=== PATIENT | male | born 1970 | race Caucasian/White ===

== ENCOUNTER 2022-09-19 21:30 | Emergency (ER) | payer OTHER, SELFPAY ==
[2022-09-19 21:33] VITALS: BP 136/75; PULSE 108; RESP 18; TEMP 38; O2SAT 98; BMI 21.7
[2022-09-19 21:48] VITALS: BP 136/75; PULSE 108; RESP 18; TEMP 38; O2SAT 98
--- NOTE | 2022-09-19 21:56 | MRI_ITS ---
STUDY: MRI THORACIC SPINE WITHOUT CONTRAST REASON FOR EXAM: Male, 52 years old. urinary retention, fever, leg weakness TECHNIQUE: MRI examination of the thoracic spine obtained with a standard protocol including multiplanar multiecho noncontrast imaging. Multiplanar multiecho pre and postcontrast imaging obtained. Contrast: 15 mL clariscan. COMPARISON: MRI examination lumbar spine of the same date FINDINGS: VERTEBRAL BODIES: 1. Normal kyphosis of the thoracic spine. There is no substantial scoliosis. 2. No areas of abnormal contrast enhancement. INTERVERTEBRAL DISC SPACES: 1. T1-2, T2-3, T3-4, T4-5, T5-6, T6-7, T7-8, T8-9, T9-10, T10-11, T11-12: Only minimal deformity of endplates in the mid to lower thoracic spine consistent with subtle Schmorl''s nodes. No evidence of marrow or disc edema. No infectious or inflammatory process is noted. 2. No evidence of disc herniation or canal stenosis. No evidence of cord or nerve root impingement. SPINAL CORD: 1. Normal visualized thoracic cord. Normal conus medullaris that terminates at the L1. 2. No areas of abnormal contrast enhancement. PARASPINOUS SOFT TISSUES: The soft tissue structures are unremarkable. MRI/Spine Thoracic W/WO Contrast IMPRESSION: 1. Only mild disc changes with subtle scattered Schmorl''s nodes in the mid to distal thoracic spine. 2. No evidence fracture destructive marrow replacement process, disc herniation canal or foraminal narrowing. 3. No evidence of cord or nerve root compression. No cord signal or contrast abnormality noted. Electronically Signed: Roger Barakat MD at 0:50 EDT ,
--- NOTE | 2022-09-19 21:56 | MRI_ITS ---
STUDY: MRI LUMBAR SPINE WITHOUT CONTRAST REASON FOR EXAM: Male, 52 years old. urinary retention, fever, leg weakness TECHNIQUE: MRI examination lumbar spine fusion protocol including multiplanar multiecho pre and postcontrast imaging. Contrast: 50 AML clariscan IV. COMPARISON: Correlation is made to MRI of the thoracic spine of the same date. FINDINGS: Vertebral bodies and alignment. 1. Vertebral body height and alignment are maintained. No evidence of marrow edema or occult fracture. 2. Paraspinous soft tissue planes have normal appearance. Normal appearance of the muscular fascial planes of the erector spinae. 3. Normal appearance of the sacrum and sacroiliac joints. Intervertebral disks levels. T12-L1: Normal endplates. Normal disc height, hydration and morphology. Normal bilateral facet joints. Normal central canal and bilateral lateral recesses. Normal bilateral intervertebral neural foramina. L1-2: Normal endplates. Normal disc height, hydration and morphology. Normal bilateral facet joints. Normal central canal and bilateral lateral recesses. Normal bilateral intervertebral neural foramina. L2-3: Minimal disc desiccation, minimal broad-based disc bulge without disc herniation canal or foraminal narrowing. L3-4: Normal endplates. Normal disc height, hydration and morphology. There is moderate facet hypertrophy. Normal central canal and bilateral lateral recesses. Normal bilateral intervertebral neural foramina. L4-5: No disc herniation canal stenosis, mild facet hypertrophic changes however no nerve root impingement. L5-S1: Disc desiccation, broad-based posterior disc bulge, no evidence however of canal or foraminal narrowing. No evidence of nerve root impingement. Spinal cord: Normal appearance of the spinal cord and conus. Conus is located at L1. Cauda equina has normal appearance. No evidence of cord compression or edema. No intramedullary signal abnormality noted. MRI/Spine Lumbar W/WO Contrast IMPRESSION: 1. [Mild disc desiccation multiple levels however no disc herniation canal or foraminal stenosis. 2. No evidence of cord or nerve root compression. Electronically Signed: Roger Barakat MD at 1:01 EDT ,
[2022-09-19 22:10] LABS: Absolute Neutrophil Count 19.6 X10^3/uL (2.0-7.7); Basophil# 0.05 X10^3/uL; Basophil% 0.2 % (0-1); Eosinophil# 0.01 X10^3/uL; Hematocrit 42.4 % (40-54); Hemoglobin 14.4 g/dL (13.0-16.5); Lymphocyte % 5.9 % (19-41); Mean Corpuscular Volume 91.4 fL (80-94); Mean Platelet Vol. 9.7 fl (6.2-12.0); Monocyte# 0.94 X10^3/uL; Monocyte% 4.3 % (0-10); NRBC Flagged by Analyzer 0 % (0-5); Neutrophil # 19.59 X10^3/uL (2.7-7.7); Neutrophil % 89.1 % (47-70); Platelet Count 312 K/mm3 (150-450); RBC Distribution Width SD 50.3 fl (35.1-43.9); Red Blood Count 4.64 M/mm3 (4.6-6.2)
[2022-09-19 22:11] LABS: Color, Urine Yellow (Yellow); Glucose, Dipstick Normal (Normal); Ketone-Dipstick 5 mg/dl (Negative); Leukocyte Esterase-Dipstick 25 /ul (Negative); Mucous, Urine 0 SEEN /hpf (<or=2+); Nitrite-Dipstick Negative (Negative); Occult Blood-Urine 250 /ul (Negative); Protein-Dipstick 15 mg/dl (Negative); Specific Gravity, Urine 1.015 (1.002-1.030); Squamous Epithelial Cells - UA 0 SEEN /hpf (0-5); Urine Bilirubin Dipstick Negative (Negative); Urine Clarity Sl. Cloudy (Clear); Urine Urobilinogen Normal (Normal); Urine pH 6.5 (5.0 - 8.0)
[2022-09-19 22:17] LABS: Bacteria 1+ /hpf (None Seen); Red Blood Cells-Urine 10-25 SEEN /hpf (0-5); White Blood Cells 0-5 SEEN /hpf (0-5)
[2022-09-19 22:33] LABS: AST(SGOT) 10 U/L (15-37); Alanine Aminotransfer ALT/SGPT 20 U/L (16-61); Albumin, Serum 3.5 g/dL (3.2-5.0); Alkaline Phosphatase 80 U/L (45-117); Anion Gap 7 (5-15); BUN 8 mg/dL (7-18); BUN/Creat Ratio 9.9 RATIO (10-20); Calcium,Total 9.4 mg/dL (8.5-10.1); Chloride 100 mmol/L (98-107); Creatinine, Serum 0.81 mg/dL (0.70-1.30); EST Glomerular Filtration Rate 107 mL/min (>60); Est Glom Filt Rate - Afr Amer 129 mL/min (>60); Estimated Creatinine Clearance 112.57 ml/min; Globulin 3.5 g/dL (2.2-4.2); Glucose 112 mg/dL (74-106); Potassium 3.7 mmol/L (3.5-5.1); Sodium Level 135 mmol/L (136-145)
[2022-09-19] MEDS: LORazepam 2 MG/ML Syringe 1 MG IV (22:40)
--- NOTE | 2022-09-19 23:14 | EX.ED.DYSGE1 ---
HPI <Dr. Spencer Andrews MD - Last Filed: 09/19/22 23:20> History of Present Illness Chief Complaint: Prieto C/O Narrative Narrative: Patient presents with urinary retention symptoms. Her friend he has had weakness in his legs for a few weeks, he was seen at another hospital and had an unremarkable MRI saw neurology, he is now wheelchair-bound secondary to his weakness, he presents today with suprapubic pain. Per nurse bladder ultrasound patient had urinary retention and a Prieto catheter was placed. Patient had significant relief 5 days ago as the Prieto catheter was being placed as I walked into the room. Reviewed the blood he also tells me he had a fever at home. He has no cough or congestion. He is denying any upper respiratory symptoms. No rash. [facility] <Dr. Spencer Andrews MD - Last Filed: 09/19/22 23:20> [facility] Medical History (Updated 09/19/22 @ 23:[address] Spencer Andrews MD) Foreign body in right forearm Post-COVID chronic decreased mobility and endurance Home Medications aspirin 81 mg capsule 81 mg PO DAILY 09/19/22 [History Last Taken Unknown] pantoprazole 40 mg tablet,delayed release 40 mg PO DAILY 09/19/22 [History Last Taken Unknown] Allergy/AdvReac Type Severity Reaction Status Date / Time No Known Allergies Allergy Verified 09/19/22 21:31 Surgical History (Updated 09/19/22 @ 21:37 by Thu Ladd) H/O arthroscopy of right knee Social History Smoking Status: Current every day smoker tobacco type: cigarettes ROS <Dr. Spencer Andrews MD - Last Filed: 09/19/22 23:20> ROS ED ROS Narrative Past medical history: Reviewed Medications: Reviewed Social history: Noncontributory Review of systems: All systems negative except as indicated General: Fever as in HPI Eyes: No visual changes ENT: No upper airway congestion, normal voice Neck: No neck pain Cardiovascular: No chest pain Respiratory: No shortness of breath or cough Gastrointestinal: suprapubic pain Genitourinary: Urinary retention Musculoskeletal: Denies myalgias no difficulty with ambulation Skin: No rash Neurological: Decreased strength and sensation of his lower extremity Psych: No recent behavioral changes Hematologic: No easy bleeding or easy bruising EXAM <Dr. Spencer Andrews MD - Last Filed: 09/19/22 23:20> Physical Exam Narrative Exam Narrative: Physical exam General: Patient does not appear ill. Initially appeared in some distress as the Prieto was placed he felt significant improvement Head: Normocephalic, Atraumatic Eyes: Conjunctiva not pale ENT: Moist mucous membranes, no congestion. Neck: Supple, Nontender, No lymphadenopathy Cardiovascular: Regular rate, Regular rhythm Respiratory: No distress, CTA bilaterally Abdomen: Soft, initially suprapubic tenderness which improved : Normal external genitalia no scrotal erythema or edema. Back: Nontender, Normal Inspection. I am palpating in the spine and he does not have any tenderness Extremities: No movement, I am diminished sensation. No signs of infection Skin: Normal color, No rash Neurological: No movement in lower extremities as above l Const Vital Signs: 09/19/22 21:33 09/19/22 21:48 09/19/22 23:51 Temperature 100.4 F H 100.4 F H 100.4 F H Temperature Source Oral Oral Oral Pulse Rate 108 H 108 H 108 H Respiratory Rate 18 18 18 Blood Pressure 136/75 H 136/75 H 136/75 H Blood Pressure Mean 95 95 95 Pulse Ox 98 98 100 Oxygen Delivery Method Room Air 09/19/22 23:51 09/20/22 00:30 09/20/22 01:00 Temperature 97 F L Temperature Source Oral Pulse Rate 104 H 98 Respiratory Rate 18 20 H 18 Blood Pressure 113/72 110/80 Blood Pressure Mean 85 90 Pulse Ox 96 98 Oxygen Delivery Method 09/20/22 03:09 09/20/22 03:10 09/20/22 05:00 Temperature 99.1 F 99.1 F Temperature Source Oral Oral Pulse Rate 96 112 H 98 Respiratory Rate 19 H 19 H 19 H Blood Pressure 109/72 109/72 117/76 Blood Pressure Mean 84 84 89 Pulse Ox 95 97 97 Oxygen Delivery Method Room Air Room Air Room Air 09/20/22 06:00 09/20/22 10:13 09/20/22 12:56 Temperature 99.2 F H Temperature Source Oral Pulse Rate 101 H 90 88 Respiratory Rate 22 H 16 16 Blood Pressure 113/71 118/72 122/70 H Blood Pressure Mean 85 87 87 Pulse Ox 98 96 97 Oxygen Delivery Method Room Air Room Air 09/20/22 15:14 Temperature Temperature Source Pulse Rate 90 Respiratory Rate 18 Blood Pressure 113/71 Blood Pressure Mean 85 Pulse Ox 97 Oxygen Delivery Method Room Air <Dr. Jyotsna Grant MD - Last Filed: 09/20/22 07:52> Physical Exam Const Vital Signs: 09/19/22 21:33 09/19/22 21:48 09/19/22 23:51 Temperature 100.4 F H 100.4 F H 100.4 F H Temperature Source Oral Oral Oral Pulse Rate 108 H 108 H 108 H Respiratory Rate 18 18 18 Blood Pressure 136/75 H 136/75 H 136/75 H Blood Pressure Mean 95 95 95 Pulse Ox 98 98 100 Oxygen Delivery Method Room Air 09/19/22 23:51 09/20/22 00:30 09/20/22 01:00 Temperature 97 F L Temperature Source Oral Pulse Rate 104 H 98 Respiratory Rate 18 20 H 18 Blood Pressure 113/72 110/80 Blood Pressure Mean 85 90 Pulse Ox 96 98 Oxygen Delivery Method 09/20/22 03:09 09/20/22 03:10 09/20/22 05:00 Temperature 99.1 F 99.1 F Temperature Source Oral Oral Pulse Rate 96 112 H 98 Respiratory Rate 19 H 19 H 19 H Blood Pressure 109/72 109/72 117/76 Blood Pressure Mean 84 84 89 Pulse Ox 95 97 97 Oxygen Delivery Method Room Air Room Air Room Air 09/20/22 06:00 09/20/22 10:13 09/20/22 12:56 Temperature 99.2 F H Temperature Source Oral Pulse Rate 101 H 90 88 Respiratory Rate 22 H 16 16 Blood Pressure 113/71 118/72 122/70 H Blood Pressure Mean 85 87 87 Pulse Ox 98 96 97 Oxygen Delivery Method Room Air Room Air 09/20/22 15:14 Temperature Temperature Source Pulse Rate 90 Respiratory Rate 18 Blood Pressure 113/71 Blood Pressure Mean 85 Pulse Ox 97 Oxygen Delivery Method Room Air <Dr. Kike Jimenez DO - Last Filed: 09/22/22 16:35> Physical Exam Const Vital Signs: 09/19/22 21:33 09/19/22 21:48 09/19/22 23:51 Temperature 100.4 F H 100.4 F H 100.4 F H Temperature Source Oral Oral Oral Pulse Rate 108 H 108 H 108 H Respiratory Rate 18 18 18 Blood Pressure 136/75 H 136/75 H 136/75 H Blood Pressure Mean 95 95 95 Pulse Ox 98 98 100 Oxygen Delivery Method Room Air 09/19/22 23:51 09/20/22 00:30 09/20/22 01:00 Temperature 97 F L Temperature Source Oral Pulse Rate 104 H 98 Respiratory Rate 18 20 H 18 Blood Pressure 113/72 110/80 Blood Pressure Mean 85 90 Pulse Ox 96 98 Oxygen Delivery Method 09/20/22 03:09 09/20/22 03:10 09/20/22 05:00 Temperature 99.1 F 99.1 F Temperature Source Oral Oral Pulse Rate 96 112 H 98 Respiratory Rate 19 H 19 H 19 H Blood Pressure 109/72 109/72 117/76 Blood Pressure Mean 84 84 89 Pulse Ox 95 97 97 Oxygen Delivery Method Room Air Room Air Room Air 09/20/22 06:00 09/20/22 10:13 09/20/22 12:56 Temperature 99.2 F H Temperature Source Oral Pulse Rate 101 H 90 88 Respiratory Rate 22 H 16 16 Blood Pressure 113/71 118/72 122/70 H Blood Pressure Mean 85 87 87 Pulse Ox 98 96 97 Oxygen Delivery Method Room Air Room Air 09/20/22 15:14 Temperature Temperature Source Pulse Rate 90 Respiratory Rate 18 Blood Pressure 113/71 Blood Pressure Mean 85 Pulse Ox 97 Oxygen Delivery Method Room Air MDM <Dr. Spencer Andrews MD - Last Filed: 09/19/22 23:20> [facility] MDM Narrative Medical decision making narrative: I discussed with also give me a history. Apparently the patient had a lumbar MRI but without contrast and did not have a thoracic MRI at the other hospital, patient told me that he had an MRI done of the thoracic spine at an outpatient MRI center but does not have any results. Regardless he has fever he has leukocytosis he has urinary retention and incontinence no movement of his legs and decreased sensation therefore I am worried about a spinal etiology. I ordered a thoracic and lumbar MRI with and without contrast. My differential includes epidural abscess, discitis, osteomyelitis of the spine. At this time he has a fever and leukocytosis his lungs are clear and he has no signs or symptoms of an upper respiratory infection I do not believe he needs a chest x-ray do not believe he has an upper respiratory infection or pneumonia. Urinalysis does not show an obvious UTI. There is no skin infection and he has no abdominal pain. Because of the significant concern for a spinal process I ordered high-dose vancomycin and 2 g of cefepime. Lab Data Labs: Laboratory Results - last 24 hr 09/19/22 09/19/22 09/19/22 21:38 21:38 22:05 WBC 22.0 H RBC 4.64 Hgb 14.4 Hct 42.4 MCV 91.4 MCH 31.0 MCHC 34.0 RDW Std Deviation 50.3 H RDW Coeff of Fabio 15.0 H Plt Count 312 MPV 9.7 Immature Gran % (Auto) 0.500 Neut % (Auto) 89.1 H Lymph % (Auto) 5.9 L Branch % (Auto) 4.3 Eos % (Auto) 0.0 Baso % (Auto) 0.2 Absolute Neuts (auto) 19.6 H Absolute Lymphs (auto) 1.30 Nucleated RBC % 0 Sodium 135 L Potassium 3.7 Chloride 100 Carbon Dioxide 28.0 Anion Gap 7 BUN 8 Creatinine 0.81 Estim Creat Clear Calc 112.57 Est GFR (MDRD) Af Amer 129 Est GFR (MDRD) Non-Af 107 BUN/Creatinine Ratio 9.9 L Glucose 112 H Calcium 9.4 Total Bilirubin 0.60 AST 10 L ALT 20 Alkaline Phosphatase 80 Total Protein 7.0 Albumin 3.5 Globulin 3.5 Albumin/Globulin Ratio 1.0 Urine Color Yellow Urine Clarity Sl. Cloudy Urine pH 6.5 Ur Specific [place] 1.015 Urine Protein 15 H Urine Glucose (UA) Normal Urine Ketones 5 H Urine Occult Blood 250 H Urine Nitrite Negative Urine Bilirubin Negative Urine Urobilinogen Normal Ur Leukocyte Esterase 25 H Urine RBC 10-25 SEEN Urine WBC 0-5 SEEN Ur Squamous Epith Cells 0 SEEN Urine Bacteria 1+ Urine Mucus 0 SEEN Radiography Diagnostic Testing: Clinical Impression(s) from Imaging Studies Lumbar Spine MRI 09/19/22 21:56 IMPRESSION: 1. [Mild disc desiccation multiple levels however no disc herniation canal or foraminal stenosis. 2. No evidence of cord or nerve root compression. Electronically Signed: Roger Barakat MD at 1:01 EDT , Thoracic Spine MRI 09/19/22 21:56 IMPRESSION: 1. Only mild disc changes with subtle scattered Schmorl''s nodes in the mid to distal thoracic spine. 2. No evidence fracture destructive marrow replacement process, disc herniation canal or foraminal narrowing. 3. No evidence of cord or nerve root compression. No cord signal or contrast abnormality noted. Electronically Signed: Roger Barakat MD at 0:50 EDT , <Dr. Jyotsna Grant MD - Last Filed: 09/20/22 07:52> [facility] Lab Data Labs: Laboratory Results - last 24 hr 09/19/22 09/19/22 09/19/22 21:38 21:38 22:05 WBC 22.0 H RBC 4.64 Hgb 14.4 Hct 42.4 MCV 91.4 MCH 31.0 MCHC 34.0 RDW Std Deviation 50.3 H RDW Coeff of Fabio 15.0 H Plt Count 312 MPV 9.7 Immature Gran % (Auto) 0.500 Neut % (Auto) 89.1 H Lymph % (Auto) 5.9 L Branch % (Auto) 4.3 Eos % (Auto) 0.0 Baso % (Auto) 0.2 Absolute Neuts (auto) 19.6 H Absolute Lymphs (auto) 1.30 Nucleated RBC % 0 Sodium 135 L Potassium 3.7 Chloride 100 Carbon Dioxide 28.0 Anion Gap 7 BUN 8 Creatinine 0.81 Estim Creat Clear Calc 112.57 Est GFR (MDRD) Af Amer 129 Est GFR (MDRD) Non-Af 107 BUN/Creatinine Ratio 9.9 L Glucose 112 H Calcium 9.4 Total Bilirubin 0.60 AST 10 L ALT 20 Alkaline Phosphatase 80 Total Protein 7.0 Albumin 3.5 Globulin 3.5 Albumin/Globulin Ratio 1.0 Urine Color Yellow Urine Clarity Sl. Cloudy Urine pH 6.5 Ur Specific [place] 1.015 Urine Protein 15 H Urine Glucose (UA) Normal Urine Ketones 5 H Urine Occult Blood 250 H Urine Nitrite Negative Urine Bilirubin Negative Urine Urobilinogen Normal Ur Leukocyte Esterase 25 H Urine RBC 10-25 SEEN Urine WBC 0-5 SEEN Ur Squamous Epith Cells 0 SEEN Urine Bacteria 1+ Urine Mucus 0 SEEN Radiography Diagnostic Testing: Clinical Impression(s) from Imaging Studies Lumbar Spine MRI 09/19/22 21:56 IMPRESSION: 1. [Mild disc desiccation multiple levels however no disc herniation canal or foraminal stenosis. 2. No evidence of cord or nerve root compression. Electronically Signed: Roger Barakat MD at 1:01 EDT , Thoracic Spine MRI 09/19/22 21:56 IMPRESSION: 1. Only mild disc changes with subtle scattered Schmorl''s nodes in the mid to distal thoracic spine. 2. No evidence fracture destructive marrow replacement process, disc herniation canal or foraminal narrowing. 3. No evidence of cord or nerve root compression. No cord signal or contrast abnormality noted. Electronically Signed: Roger Barakat MD at 0:50 EDT , Treatment and Re-Evaluation :: Patient was signed out to me pending MRI results. MRI of the thoracic and lumbar spine reveal mild disc protrusions however no disc herniation or canal stenosis is noted. No evidence of abscess or discitis. Case was discussed with hospitalist who feels patient should be served at a facility with neurology onsite to evaluate the patient. This was discussed with patient and at bedside. They would prefer [facility]. I spoke with both medicine as well as neurology. Patient has been accepted to medicine service and we are awaiting bed assignment at this time. COVID and influenza swab will be obtained. Urine will be sent for culture. Blood cultures have already been sent. Addendum: Patient was discussed with hospitalist in the morning as we are anticipating a significant wait for a bed at [facility]. He spoke with the patient who also agreed to potential transfer to [facility]. I spoke with [facility] transfer center. They will make phone calls with her neurologist but patient will likely be placed on a waiting list for a bed at that facility as well. <Dr. Kike Jimenez, DO - Last Filed: 09/22/22 16:35> [facility] Lab Data Labs: Laboratory Results - last 24 hr 09/19/22 09/19/22 09/19/22 21:38 21:38 22:05 WBC 22.0 H RBC 4.64 Hgb 14.4 Hct 42.4 MCV 91.4 MCH 31.0 MCHC 34.0 RDW Std Deviation 50.3 H RDW Coeff of Fabio 15.0 H Plt Count 312 MPV 9.7 Immature Gran % (Auto) 0.500 Neut % (Auto) 89.1 H Lymph % (Auto) 5.9 L Branch % (Auto) 4.3 Eos % (Auto) 0.0 Baso % (Auto) 0.2 Absolute Neuts (auto) 19.6 H Absolute Lymphs (auto) 1.30 Nucleated RBC % 0 Sodium 135 L Potassium 3.7 Chloride 100 Carbon Dioxide 28.0 Anion Gap 7 BUN 8 Creatinine 0.81 Estim Creat Clear Calc 112.57 Est GFR (MDRD) Af Amer 129 Est GFR (MDRD) Non-Af 107 BUN/Creatinine Ratio 9.9 L Glucose 112 H Calcium 9.4 Total Bilirubin 0.60 AST 10 L ALT 20 Alkaline Phosphatase 80 Total Protein 7.0 Albumin 3.5 Globulin 3.5 Albumin/Globulin Ratio 1.0 Urine Color Yellow Urine Clarity Sl. Cloudy Urine pH 6.5 Ur Specific [place] 1.015 Urine Protein 15 H Urine Glucose (UA) Normal Urine Ketones 5 H Urine Occult Blood 250 H Urine Nitrite Negative Urine Bilirubin Negative Urine Urobilinogen Normal Ur Leukocyte Esterase 25 H Urine RBC 10-25 SEEN Urine WBC 0-5 SEEN Ur Squamous Epith Cells 0 SEEN Urine Bacteria 1+ Urine Mucus 0 SEEN Radiography Diagnostic Testing: Clinical Impression(s) from Imaging Studies Lumbar Spine MRI 09/19/22 21:56 IMPRESSION: 1. [Mild disc desiccation multiple levels however no disc herniation canal or foraminal stenosis. 2. No evidence of cord or nerve root compression. Electronically Signed: Roger Barakat MD at 1:01 EDT , Thoracic Spine MRI 09/19/22 21:56 IMPRESSION: 1. Only mild disc changes with subtle scattered Schmorl''s nodes in the mid to distal thoracic spine. 2. No evidence fracture destructive marrow replacement process, disc herniation canal or foraminal narrowing. 3. No evidence of cord or nerve root compression. No cord signal or contrast abnormality noted. Electronically Signed: Roger Barakat MD at 0:50 EDT , Treatment and Re-Evaluation Comments:: Dr Jimenez note [id number] we have called [facility] transfer line 3 different times today, the third time they stated they will not have beds until maybe this weekend of the holiday weekend. We have called the [facility] transfer line 3 different times as well since 7 AM. They stated they have 19 discharges this afternoon at [facility], and they will have a patient bed for him this afternoon. Patient has not required anything today, patient's been eating and drinking no difficulty. Pt transitioned to Dr Costa until transfer at this time. Discharge Plan Triage Chief Complaint: Prieto C/O ED Provider: Spencer Andrews Dx/Rx/DC Orders Clinical Impression: Acute urinary retention, Fever, Leukocytosis, Bilateral leg weakness Prescriptions: No Action pantoprazole 40 mg Tablet,Delayed Release (Dr/Ec) 40 mg PO DAILY aspirin 81 mg Capsule 81 mg PO DAILY Primary Care Provider: Patrick Zavaleta Referrals: Patrick Zavaleta MD [Primary Care Provider] - Disposition Disposition: Acute Care Hospital Discharge Location: [facility] Discharge Date/Time: 09/20/22 21:01
--- NOTE | 2022-09-19 23:50 | ED.RN ---
IV ANTIBIOTICS NOT HUNG DUE TO PATIENT BEING IN MRI
[2022-09-19 23:51] VITALS: BP 136/75; PULSE 108; RESP 18; TEMP 38; O2SAT 100
[2022-09-20] VITALS (9 sets, daily range): BP systolic 109–122; BP diastolic 70–80; PULSE 88–112; RESP 16–22; TEMP 36.1–37.3; O2SAT 95–98
--- NOTE | 2022-09-20 00:25 | ED.RN ---
antibiotics delayed d/t pt being in MRI.
--- NOTE | 2022-09-20 19:24 | NURSING ---
CHANGED ETA TO 2100
== END 2022-09-20 21:01 | disposition short-term general hospital (02) ==
PROVIDERS: Emergency Provider Emergency Medicine; PCP Family Medicine; Visit Provider Emergency Medicine
DX: R33.9 Retention of urine, unspecified (principal); R50.9 Fever, unspecified; F17.210 Nicotine dependence, cigarettes, uncomplicated; R32 Unspecified urinary incontinence; R53.1 Weakness; Z79.82 Long term (current) use of aspirin; D72.829 Elevated white blood cell count, unspecified
CPT/HCPCS: 72157; 72158; 80053; 81001; 85025; 87040; 87077; 87086; 87088; 87186; 87428; 96365; 96366; 96367; 96375; 99285; A9575; J7040; J7120; A4216